=== PATIENT | male | born 1975 | race Caucasian/White ===

== ENCOUNTER → 2018-03-02 | Outpatient (CLI) | payer MEDICARE ==
[2018-03-02 16:40] VITALS: BP 131/65; PULSE 86; RESP 16; TEMP 98.2; BMI 37.3
--- NOTE | 2018-03-02 17:27 | P.PN ---
Subjective Progress Note Date: 03/02/18 DATE OF SERVICE: 03/02/2018 CHIEF COMPLAINT: Follow-up, sleeve gastrectomy. HISTORY OF PRESENT ILLNESS: Chuck Rodriges is a very successful 40-year-old gentleman who initially presented to the program over a year ago weighing 440 pounds. Today he comes in weighing 260 pounds. He has lost 180 pounds. His percent excess weight loss is 70%. His body mass index has been reduced from 57.9 to 35.4. Total BMI point reduction is 22.5. No reports of active gastroesophageal reflux disease. He has moderate improvement of his joint pain throughout. He has adopted an active lifestyle, including walking and jogging. His sleep apnea has completely resolved. He has moderate decrease in his medications for his bipolar disorder, including decrease in his Trileptal. He does report chronic panniculitis which had been present even prior to his surgery. He is taking nystatin powder. His personal goal is to get down to 220 pounds. He is less than 40 pounds shy of his goal. He now presents for further evaluation and management. Last seen 02/13/2016. He comes in today at 276 pounds. He had broke his elbow in the past 2 years. He was training for 10 K runs. The lowest weight was less than 261 pounds. Takes prilosec regularly for gastroesophageal reflux disease. No dysphagia. Has occassional fatigue. He goes to the gym often. His joint pain has improved with his weight loss. He is running and weight training. Protein intake of over 90 g daily from protein shakes. He reports panniculitis chronic for over 3+ years despite treatment of prescribed treatment. PAST MEDICAL HISTORY: 1. Depression. 2. Hypertension. 3. Osteoarthritis. 4. Morbid obesity. 5. Bipolar disorder. 6. Chronic panniculitis. PAST SURGICAL HISTORY: 1. Open reduction internal fixation of the ankle. 2. Upper endoscopy. 3. Status post sleeve gastrectomy. MEDICATIONS: 1. Vitamin D. 2. Klonopin. 3. Ambien. 4. Co-Q10. 5. Trileptal. 6. Nystatin powder. 7. Multivitamin. 8. Melatonin. 9. Iron. 10. Lexapro. 11. Adderall. ALLERGIES: Denies. SOCIAL HISTORY: He quit tobacco use. No active illicit drug use. FAMILY HISTORY: Pertinent for morbid obesity. He reports colon cancer in his family. No reports of DVTs or pulmonary embolism. REVIEW OF SYSTEMS: CONSTITUTIONAL: Highest weight of 440 pounds. Initial body mass index was as high as 59.7. Mcclave body weight is 183 pounds. GASTROINTESTINAL: Resolving gastroesophageal reflux disease. RESPIRATORY: Resolved obstructive sleep apnea. PSYCH: Moderate reduction of his mood-stabilizing medications. CARDIOVASCULAR: Moderate improvement of his blood pressure. MUSCULOSKELETAL: Moderate improvement of joint pain, particularly of the left knee and ankle. DIETARY HISTORY: He is maintaining over 75 gm of protein daily. SKIN: Reports worsening symptoms of panniculitis despite medical treatment nystatin powder. HEENT: No troubles with vision or hearing. ENDOCRINE: No reports of diabetes or thyroid disorder. HEMATOLOGIC: No reports of recent DVTs or pulmonary emboli. PHYSICAL EXAM: VITAL SIGNS: 98.4, 82, 18, 125/77, 6 feet, 260 pounds. Body mass index of 35.4. Mcclave body weight is 183 pounds. ABDOMEN: Soft, nontender. No palpable incisional hernias. Skin extends over the pubis by approximately 3 to 4 cm. Moderate panniculitis of the pannus. GENERAL: Well-developed pleasant male in no acute distress. MUSCULOSKELETAL: No clubbing or cyanosis. HEENT: No scleral icterus. Extraocular movements are intact. Moist buccal mucosa. NECK: Supple without lymphadenopathy. CHEST: Unlabored respirations with equal bilateral excursions. CARDIOVASCULAR: Regular rate and rhythm. NEURO: No focal or lateralizing signs. PSYCH: Appropriate affect. Alert and oriented to person, place and time. LABS: Pending. ASSESSMENT: 1. Morbid obesity due to excess caloric intake. 2. Body mass index reduced from 59.7 to 35.4. 3. Status post sleeve gastrectomy. 4. Status post massive weight loss, 180 pounds. 5. History of bipolar disorder, improved. 6. Osteoarthritis of the bilateral knees and ankles, moderately improved. 7. History of hypertensive heart disease without cardiomyopathy, improved. 8. Iron deficiency due to iatrogenic procedure. 9. History of obstructive sleep apnea, improved. 10. Chronic pannniculitis of the abdomen despite medical therapy. PLAN: 1. Recommend bariatric metabolic panel. 2. Panniculectomy evaluation for chronic panniculitis. In the interim, recommend Nystatin powder. 3. He has lost much weight from 290 pounds since September 2017. 4. He is eager to increase muscle. 5. Recommend support groups advised. 6. Follow up in 1 month. Objective - Vital Signs Vital signs: Vital Signs Temp 98.2 F 03/02/18 16:36 Pulse 86 03/02/18 16:36 Resp 16 03/02/18 16:36 BP 131/65 03/02/18 16:36 Pulse Ox Intake & Output 03/01/18 03/02/18 03/02/18 18:59 06:59 18:59 Weight 124.993 kg
== END | disposition home or self-care (01) ==
LOC: BARWHC3 15:51
PROVIDERS: ATTEND Surgery Plastic and Reconstructive Surgery
DX: Z48.815 Encounter for surgical aftercare following surgery on the digestive system (principal); E66.01 Morbid (severe) obesity due to excess calories; M17.0 Bilateral primary osteoarthritis of knee; M19.072 Primary osteoarthritis, left ankle and foot; M19.071 Primary osteoarthritis, right ankle and foot; M79.3 Panniculitis, unspecified; Z87.09 Personal history of other diseases of the respiratory system; E61.1 Iron deficiency; Z86.79 Personal history of other diseases of the circulatory system; Z86.59 Personal history of other mental and behavioral disorders; Z98.84 Bariatric surgery status; Z68.35 Body mass index [BMI] 35.0-35.9, adult; Z79.899 Other long term (current) drug therapy
CPT/HCPCS: 99211

== ENCOUNTER → 2018-10-07 | Outpatient (CLI) | payer MEDICARE ==
[2018-10-07 16:31] LABS: HCT 40.6 % (39.0-53.0); HGB 13.1 gm/dL (13.0-17.5); MCH 28.6 pg (25.0-35.0); MCHC 32.2 g/dL (31.0-37.0); MCV 88.8 fL (80.0-100.0); Mean Platelet Volume 6.8; Platelet Count 256 k/uL (150-450); RBC 4.57 m/uL (4.30-5.90); WBC 6.2 k/uL (3.8-10.6)
[2018-10-07 16:37] LABS: Partial Thromboplastin Time 24.9 sec (22.0-30.0); Prothrombin Time 10.3 sec (9.0-12.0)
[2018-10-08 02:25] LABS: Parathyroid Hormone Intact 40.7 pg/mL (14.0-72.0)
[2018-10-08 02:33] LABS: Albumin 4.6 g/dL (3.80-4.90); Albumin/Globulin Ratio 2.3 (1.20-2.10); Anion Gap 9.9 mmol/L (4.00-12.00); Calcium 9.6 mg/dL (8.7-10.3); Carbon Dioxide 26.1 mmol/L (21.6-31.8); LDL Cholesterol,Calculated 145.6 mg/dL (0.0-131.0); Magnesium 1.8 mg/dL (1.5-2.4); Phosphorus 3.8 mg/dL (2.4-5.1); Total Bilirubin 0.4 mg/dL (0.3-1.2); Total Protein 6.6 g/dL (6.2-8.2); VLDL Calculation 15.4 mg/dL (5.00-40.00)
[2018-10-08 02:36] LABS: Iron Saturation 25.09 (15.00-50.00)
[2018-10-08 02:46] LABS: Vitamin D 25 Hydroxy 59.1 ng/mL (30.0-100.0)
[2018-10-08 02:52] LABS: Folate, Serum >24.0 ng/mL
[2018-10-08 03:47] LABS: Hemoglobin A1C 5.1 % (4.0-6.0)
[2018-10-10 13:11] LABS: Zinc, Serum 76 ug/dL (60-130)
[2018-10-11 05:34] LABS: Vitamin A 63 ug/dL (38-106)
[2018-10-11 05:45] LABS: Vitamin B1 51 ug/L (38-122)
== END | disposition home or self-care (01) ==
LOC: LABWHC1 15:38
PROVIDERS: ATTEND Surgery Plastic and Reconstructive Surgery
DX: E66.01 Morbid (severe) obesity due to excess calories (principal); E21.1 Secondary hyperparathyroidism, not elsewhere classified; E89.1 Postprocedural hypoinsulinemia; D50.9 Iron deficiency anemia, unspecified; K90.9 Intestinal malabsorption, unspecified; E55.9 Vitamin D deficiency, unspecified; K76.9 Liver disease, unspecified; N19 Unspecified kidney failure; K50.90 Crohn's disease, unspecified, without complications
CPT/HCPCS: 36415; 80053; 80061; 82306; 82525; 82607; 82728; 82746; 83036; 83540; 83550; 83735; 83970; 84100; 84134; 84255; 84425; 84443; 84590; 84630; 85027; 85610; 85730

== ENCOUNTER → 2019-12-27 | Outpatient (CLI) | payer MEDICARE, OTHER ==
[2019-12-27 15:51] VITALS: BP 111/72; PULSE 96; RESP 16; TEMP 97.8; BMI 36.7
--- NOTE | 2019-12-27 16:24 | P.PN ---
Subjective Progress Note Date: 12/27/19 He comes in for panniculectomy. He has Nystatin powder. He is working out. Policy Change Clerk not seen. ABDOMEN: 10 pounds of pannus PLAN: 1. Evaluation for panniculitis. 2. Recommend pictures. 3. Nystatin powder 4. Policy Change Clerk referral. Patient comes with moderate questions all of which were addressed. Overall recommend continue protein intake protein of 100 g daily. He is wearing a waste market development trainer which he may continue. Recommend abdominal exercises preoperatively for best surgical outcome. Separately, recommend bariatric labs. Will need correction of nutritional deficiencies prior to surgical intervention. Overall weight loss has been stable in the past 3+ years. Recovery at least 2 months post-panniculectomy was also reviewed pending the amount of skin removal. Objective - Vital Signs Vital signs: Vital Signs Temp 97.8 F 12/27/19 15:46 Pulse 96 12/27/19 15:46 Resp 16 12/27/19 15:46 BP 111/72 12/27/19 15:46 Pulse Ox 98 12/27/19 15:46 Intake & Output 12/26/19 12/27/19 12/27/19 18:59 06:59 18:59 Weight 122.878 kg
[2019-12-27 17:52] LABS: HCT 43.9 % (39.0-53.0); HGB 14.5 gm/dL (13.0-17.5); MCH 29.6 pg (25.0-35.0); MCHC 32.9 g/dL (31.0-37.0); MCV 89.8 fL (80.0-100.0); Platelet Count 235 k/uL (150-450); RBC 4.89 m/uL (4.30-5.90); RDW 12.4 % (11.5-15.5); WBC 6.8 k/uL (3.8-10.6)
[2019-12-27 18:02] LABS: INR 0.9 (<1.2); Partial Thromboplastin Time 23.4 sec (22.0-30.0); Prothrombin Time 9.9 sec (9.0-12.0)
[2019-12-28 02:21] LABS: Hemoglobin A1C 5.1 % (4.0-6.0)
[2019-12-28 02:35] LABS: % Iron Saturation 31.91 (15.00-50.00); African American GFR (CKD) 85.3 (60.0-200.0); Albumin 4.6 g/dL (3.80-4.90); Anion Gap 12.3 mmol/L (4.00-12.00); BUN/Creat Ratio 23.33 Ratio (12.00-20.00); Calcium 9.4 mg/dL (8.7-10.3); Carbon Dioxide 24.7 mmol/L (21.6-31.8); Chol/HDL Ratio 3.56; Globulin 2.3 g/dL (1.6-3.3); LDL Cholesterol,Calculated 118.2 mg/dL (0.0-131.0); Non-African American GFR(CKD) 73.6 (60.0-200.0); Phosphorus 4.1 mg/dL (2.4-5.1); Potassium 4.2 mmol/L (3.5-5.5); Total Bilirubin 0.5 mg/dL (0.3-1.2); Total Protein 6.9 g/dL (6.2-8.2); VLDL Calculation 19.8 mg/dL (5.00-40.00)
[2019-12-28 02:43] LABS: Ferritin 66.4 ng/mL (22.0-322.0)
[2019-12-28 03:28] LABS: Folate, Serum 16.7 ng/mL
[2019-12-28 12:02] LABS: Zinc, Serum 75 ug/dL (60-130)
[2019-12-29 07:44] LABS: Vitamin A 54 ug/dL (38-106)
[2019-12-29 10:42] LABS: Vit B1(Thiamine) 88 ug/L (38-122)
== END | disposition home or self-care (01) ==
LOC: BARWHC3 15:13
PROVIDERS: ATTEND Surgery Plastic and Reconstructive Surgery
DX: M79.3 Panniculitis, unspecified (principal); E66.01 Morbid (severe) obesity due to excess calories; E21.1 Secondary hyperparathyroidism, not elsewhere classified; E89.1 Postprocedural hypoinsulinemia; D50.9 Iron deficiency anemia, unspecified; K90.9 Intestinal malabsorption, unspecified; E55.9 Vitamin D deficiency, unspecified; K74.1 Hepatic sclerosis; N19 Unspecified kidney failure; K50.90 Crohn's disease, unspecified, without complications; Z68.36 Body mass index [BMI] 36.0-36.9, adult
CPT/HCPCS: 84255; 84134; 84425; 80061; 80053; 82607; 82728; 82525; 82746; 83540; 83550; 83735; 84100; 84443; 84590; 84630; 85027; 85610; 85730; 82306; 83970; 83036; G0463; 99211

== ENCOUNTER → 2021-04-21 | Outpatient (CLI) | payer MEDICARE, OTHER ==
[2021-04-21 09:31] VITALS: BP 111/75; PULSE 81; RESP 16; TEMP 97.4
--- NOTE | 2021-04-21 10:00 | P.PAINCN ---
History of Present Illness - Reason for Consult Consult date: 04/21/21 - History of Present Illness This is an initial consultation visit for this 45 years old male with a chronic history of severe neck pain with radiation to the left upper extremity, started more than 4 months ago after he hit his head against the Garage door at home, pain is constant, radiated to the left upper extremity, also patient complaining of severe left shoulder pain. Bending him from doing any activity in his left arm, he feels some weakness in his left arm, he denies any fever he denies any change in the bowel movement or urination, he is done physical therapy, and he is doing home exercises, he is already started on NSAID ( Mobic), Tylenol and Ultram and baclofen, and he continued to have severe pain Past Medical History Past Medical History: GERD/Reflux, Hypertension, Musculoskeletal Disorder, Skin Disorder, Sleep Apnea/CPAP/BIPAP Additional Past Medical History / Comment(s): currently HTN resolved, migraines, uses CPAP, TROUBLE FALLING ASLEEP, past hx. Broken Left elbow, neck & shoulder problems History of Any Multi-Drug Resistant Organisms: None Reported Past Surgical History: Bariatric Surgery, Orthopedic Surgery Additional Past Surgical History / Comment(s): Rt ankle, screws and plates, Gastric Sleeve on 02/04/2015 Past Anesthesia/Blood Transfusion Reactions: Previous Problems w/ Anesthesia, Motion Sickness Additional Past Anesthesia/Blood Transfusion Reaction / Comm: has had headache before after waking up Past Psychological History: ADD/ADHD, Anxiety, Depression Smoking Status: Former smoker Past Alcohol Use History: None Reported Additional Past Alcohol Use History / Comment(s): quit smoking 5 yrs. ago, smoked on & off 15 yrs. 1ppd Past Drug Use History: None Reported - Past Family History Mother Family Medical History: Diabetes Mellitus, Hypertension Additional Family Medical History / Comment(s): high cholesterol Medications and Allergies Home Medications Medication Instructions Recorded Confirmed Type Omeprazole [PriLOSEC] 20 mg PO DAILY 03/03/18 04/15/21 History hydrOXYzine HCL [Atarax] 25 mg PO DAILY PRN 03/03/18 04/15/21 History traZODone HCL [Desyrel] 300 mg PO HS 03/03/18 04/15/21 History Lisdexamfetamine Dimesylate 70 mg PO QAM 12/27/19 04/15/21 History [Vyvanse] Nortriptyline HCl [Pamelor] 75 mg PO HS 12/27/19 04/15/21 History Propranolol [Inderal] 20 mg PO DAILY PRN 12/27/19 04/15/21 History clonazePAM [KlonoPIN] 0.5 mg PO TID PRN 12/27/19 04/15/21 History Acetaminophen Tab [Tylenol] 650 mg PO Q4-6H PRN 04/15/21 04/15/21 History Baclofen [Lioresal] 10 mg PO TID 04/15/21 04/15/21 History Dextroamphetamine/Amphetamine 10 mg PO 1500 04/15/21 04/15/21 History [Adderall] Glucos Sul 2Kcl/MSM/Chond/C/Mn 1 each PO DAILY 04/15/21 04/15/21 History [Glucosamine Chondroitin Cap] Meloxicam [Mobic] 7.5 mg PO DAILY 04/15/21 04/15/21 History Burtrum-3 Fatty Acids/Fish Oil [Fish 2 each PO DAILY 04/15/21 04/15/21 History Oil 1,000 mg Softgel] Turmeric/Curcumin 1 tab PO DAILY 04/15/21 04/15/21 History traMADol HCL [Ultram] 50 mg PO Q4-6H PRN 04/15/21 04/15/21 History Allergies Allergy/AdvReac Type Severity Reaction Status Date / Time No Known Allergies Allergy Verified 04/15/21 14:21 Physical Exam Vitals: Vital Signs Temp Pulse Resp BP Pulse Ox 04/21/21 09:26 97.4 F L 81 16 111/75 95 Physical Examinations : -Constitutiona : Cooperative , not in acute distress . -HEENT : nech : supple , no Lymphadenopathy , normal thyroid size . : eyes : no ptosis , no icterus, no photophobia . - neurologic : Cranial nerve II to XII intact , no focal neurological deffecit . -psychatric : alert , oriented X 3 , appropriate affect , intact judgment and insight . -Lymphatic : no Lymphadenopathy . - musculoskeltal : Cervical Spine motor stregnth in the deltoid and biceps, normal right side , normal Left side motor stregnth biceps and the wrist extensors normal right side ,normal left side . motor stregnth in the triceps muscle . normal Right side , normal Left side deep tendon reflexes normal at the biceps , normal at Brachioradialis , normal at triceps. cervical facet loading test: Positive Bilaterally Spurling test= positive left. Neck distraction test= positive left. Landy sign= positive left . Multiple trigger point identified in the left side cervical paraspinal muscles, and anterior shoulder muscles Abduction and adduction and lateral rotation of the left shoulder associated with severe pain Lumber spine moter stegnth lower extremities ,thigh and legs 5/5 Right side , 5/5 Left side Results Comments: MRI of the cervical spine C5 6 left central disc protrusion and moderate spinal canal stenosis C6 7 annular bulging disc Assessment and Plan Plan: Assessment and plan=1-cervical degenerative disc disease. 2-cervical spinal stenosis. 3-left shoulder arthralgia. 4-myofascial pain syndrome left side cervical paraspinal muscles and left shoulder area. Patient could benefit from cervical epidural steroid injection under fluoroscopy guidance at C6 7 or C7-T1 left paramedian approach and at the same time ,we can do trigger point injections left-sided cervical paraspinal muscles and left shoulder area( anterior) Time with Patient: Greater than 30 PQRS Measure Charge Sheet Measure #130: Documentation of Current Meds in Medical Chart: Patient's medications documented in chart Measure #226: Tobacco Use: Screen & Cessation Intervention: Pt not a tobacco user Measure #111: Pneumonia Vaccination: Pneumococcal vaccine NOT administered or previously given Measure #47: Advance Care Plan: Advance care planning discussed & documented, pt chose/unable to give Measure #412: Opioid Treatment Agreement: No documentation of signed opioid treatment agreement Measure #408: Opioid Therapy Follow-up Evaluation: Patient had NO f/u eval minimum every 3 months during opioid therapy Measure #317: Preventitive Care & Scrn High Bld Press & F/U: Normal blood pressure, f/u not required Measure #128: Body Mass Index (BMI) Screening & Follow-up: BMI documented ABOVE normal parameters - f/u documented Measure #131: Pain Assessment & Follow-up: Pain positive & plan documented, Follow-up scheduled Measure #431: Unhealthy Alcohol Use Preventative Care & Scrn: Patient not identified as an unhealthy alcohol user PQRS Narrative: Smoking Status Former smoker Blood Pressure 111/75 Pain Intensity [Left Shoulder] 5 Scale Used Numeric (1 - 10) Hx Alcohol Use (MH) No Home Medications: Ambulatory Orders Omeprazole [PriLOSEC] 20 mg PO DAILY 05/10/18 hydrOXYzine HCL [Atarax] 25 mg PO DAILY PRN 03/03/18 traZODone HCL [Desyrel] 300 mg PO HS 03/03/18 Lisdexamfetamine Dimesylate [Vyvanse] 70 mg PO QAM 12/27/19 Nortriptyline HCl [Pamelor] 75 mg PO HS 12/27/19 Propranolol [Inderal] 20 mg PO DAILY PRN 12/27/19 clonazePAM [KlonoPIN] 0.5 mg PO TID PRN 12/27/19 Acetaminophen Tab [Tylenol] 650 mg PO Q4-6H PRN 04/15/21 Baclofen [Lioresal] 10 mg PO TID 04/15/21 Dextroamphetamine/Amphetamine [Adderall] 10 mg PO 1500 04/15/21 Glucos Sul 2Kcl/MSM/Chond/C/Mn [Glucosamine Chondroitin Cap] 1 each PO DAILY 04/15/21 Meloxicam [Mobic] 7.5 mg PO DAILY 04/15/21 Burtrum-3 Fatty Acids/Fish Oil [Fish Oil 1,000 mg Softgel] 2 each PO DAILY 04/15/21 Turmeric/Curcumin 1 tab PO DAILY 04/15/21 traMADol HCL [Ultram] 50 mg PO Q4-6H PRN 04/15/21
== END ==
LOC: PNWHC3 09:16
PROVIDERS: ATTEND Specialist
DX: M50.30 Other cervical disc degeneration, unspecified cervical region (principal); M48.02 Spinal stenosis, cervical region; M25.512 Pain in left shoulder; M79.18 Myalgia, other site; K21.9 Gastro-esophageal reflux disease without esophagitis; I10 Essential (primary) hypertension; F90.9 Attention-deficit hyperactivity disorder, unspecified type; F41.9 Anxiety disorder, unspecified; F32.9 Major depressive disorder, single episode, unspecified; Z87.891 Personal history of nicotine dependence
CPT/HCPCS: 99211

== ENCOUNTER 2021-05-06 06:57 | Day surgery (SDC) | payer MEDICARE, OTHER ==
[~2021-05-06 06:57] MED LIST: LACTATED RINGERS 1,000 ML IV SCH
[2021-05-06 07:47] VITALS: RESP 16; TEMP 97.2
[2021-05-06] MEDS ORDERED: LIDOCAINE 1% (10MG/ML) FOR IV START INTRADERMA ONE (08:09)
[2021-05-06] MEDS ORDERED: ROPIVACAINE 5MG/ML 20ML VIAL ONE (08:16)
[2021-05-06] MEDS ORDERED: IOPAMIDOL M200 10 ML VIAL ONE (08:16)
[2021-05-06] MEDS ORDERED: MIDAZOLAM 2 MG/2 ML VIAL ONE (08:16)
[2021-05-06] MEDS ORDERED: DEXAMETHASONE SOD PHOSPHATE 10 MG/ML 1 ML VIAL ONE (08:16)
[2021-05-06] MEDS ORDERED: fentaNYL (PF) 50 MCG/ML 2 ML AMP ONE (08:16)
[2021-05-06] MEDS ORDERED: TRIAMCINOLONE ACETONIDE 40 MG/ML 1 ML VIAL ONE (08:16)
--- NOTE | 2021-05-06 08:32 | P.PCN ---
Date of Procedure: 05/06/21 Surgeon: Dexter Johnson Pathology: none sent Condition: stable Disposition: PACU Description of Procedure: 1. Cervical epidural steroid injection under fluoroscopic guidance, C7-T1 left paramedian approach. 2. Cervical epidurogram. :3-trigger point injection in the left shoulder muscles including supraspinatus, infraspinatus and trapezius muscles and anteriorly in the left upper deltoid area. PREOPERATIVE DIAGNOSIS: Cervical radiculopathy, cervical spondylosis without myelopathy POSTOPERATIVE DIAGNOSIS: : Same as above ANESTHESIA: Local anesthesia with 1% lidocaine and IV moderate conscious sedation with 2 mg Versed and 100 mcg Fentanyl . EBL 0 PROCEDURE INDICATION: The patient with neck pain and radiculopathy unresponsive to conservative treatment consents for procedure. PROCEDURE DESCRIPTION / TECHNIQUE: The patient was seen and identified in the preoperative area. Risks, benefits, complications, including but not limited to infections ,bleeding , allergic reactions to the medications ,and not complete pain relief, and alternatives were discussed with the patient, the patient agreed to proceed with the procedure and signed the consent. Patient was taken to the OR and time out was completed. The patient was placed in the prone position on the procedure table. A pillow was placed under the patients chest to increase the flexion of the cervical spine . The cervical area was prepped and draped in the usual sterile fashion. Vital signs were closely monitored during the procedure. Conscious sedation was used during the procedure to decrease patients anxiety. Using anterior-posterior fluoroscopy, the C7-T1 interlaminar space was identified and the skin over this site was marked and then infiltrated with 1% lidocaine subcutaneously. Subsequently, a 20-gauge 3-1/2-inch Tuohy epidural needle was inserted and advanced toward the epidural space by means of loss of resistance to air technique and guided by AP and lateral fluoroscopy. The needle tip contacted the lamina of T1 vertebra first, then it was walked off bone and into the epidural space using the loss of to air and fluoroscopic guidance to identify the epidural space. The correct needle position in the epidural space was verified with the injection of 1 mL of the water soluble contrast dye Isovue and observing an excellent epidurogram with the epidural spread of the dye, after negative aspiration for blood and CSF and in the absence of paresthesias. Again after negative aspiration, 20 mg of Decadron was injected and a washout of epidurogram was seen. Needle was withdrawn intact, sk in was cleansed, and bandages were applied. A copy of the needle placement picture was saved to the fluoroscopy machine. I then turned my attention to doing the trigger point injections on the above- mentioned muscles on the left shoulder area using 25-gauge 1 inch needle and I then injected 6 mL of Marcaine 0.5% mixed with 20 mg of Kenalog. 1 mL of the solution was injected in each trigger point and a total of 6 injections were done.
--- NOTE | 2021-05-06 08:40 | FL ---
Fluoroscopy HISTORY: Pain 5 seconds fluoroscopy time supplied to the referring clinician. 1 intraoperative C-arm images docume nt the procedure. See dictated report from anesthesia.
[2021-05-06 08:54] VITALS: BP 118/73; PULSE 82
[2021-05-06] MEDS ORDERED: IV FLUID CONTINUATION 1,000 ML IV ONE (08:55)
== END 2021-05-06 09:07 ==
LOC: ORPAIN 06:57
PROVIDERS: ATTEND Anesthesiology
DX: M47.22 Other spondylosis with radiculopathy, cervical region (principal); F32.9 Major depressive disorder, single episode, unspecified; Z79.891 Long term (current) use of opiate analgesic; Z79.899 Other long term (current) drug therapy
CPT/HCPCS: 20553; 62321; J2250; J1100; J3301; J3010; Q9966; J2795; 99152

== ENCOUNTER 2021-06-03 07:00 | Day surgery (SDC) | payer MEDICARE, OTHER ==
[2021-06-02 10:51] VITALS: BMI 32.7
[2021-06-03 07:24] VITALS: RESP 16; TEMP 97.4
[2021-06-03] MEDS ORDERED: LIDOCAINE 1% (10MG/ML) FOR IV START INTRADERMA ONE (07:33)
[2021-06-03] MEDS ORDERED: LACTATED RINGERS 1,000 ML IV ONE (07:33)
[2021-06-03] MEDS ORDERED: DEXAMETHASONE SOD PHOSPHATE 10 MG/ML 1 ML VIAL ONE (07:38)
[2021-06-03] MEDS ORDERED: ROPIVACAINE 5MG/ML 20ML VIAL ONE (07:38)
[2021-06-03] MEDS ORDERED: MIDAZOLAM 2 MG/2 ML VIAL ONE (07:38)
[2021-06-03] MEDS ORDERED: fentaNYL (PF) 50 MCG/ML 2 ML AMP ONE (07:38)
[2021-06-03] MEDS ORDERED: IOPAMIDOL M200 10 ML VIAL ONE (07:38)
[2021-06-03] MEDS ORDERED: IV FLUID CONTINUATION 650 ML IV ONE (07:56)
--- NOTE | 2021-06-03 07:59 | P.PCN ---
Date of Procedure: 06/03/21 Procedure(s) Performed: . PROCEDURE 1. Cervical epidural steroid injection under fluoroscopic guidance, C7-T1 (fluoroscopy images available in the radiology department ) 2. Cervical epidurogram. 3. Trigger point injection left side cervical paraspinal muscles, supraspinatus, and infraspinatus muscules, (toatal 5 trigger point injected ) PREOPERATIVE DIAGNOSIS: 1- Cervical Degenerative Disc Diseases 2-cervical spinal stenosis. 3-myofascial pain syndrome and cervical area POSTOPERATIVE DIAGNOSIS: : same as pre op diagnosis ANESTHESIA: Local anesthesia with lidocaine 1 % , and moderate sedation, with Versed 2 mg and Fentanyl 50 mcg. EBL 0 PROCEDURE INDICATION: The patient with neck pain and radiculitis unresponsive to conservative treatment consents for procedure. PROCEDURE DESCRIPTION / TECHNIQUE: The patient was seen and identified in the preoperative area. Risks, benefits, complications, including but not limited to infections ,bleeding , allergic reactions to the medications ,and not complete pain releife, and alternatives were discussed with the patient, the patient agreed to proceed with the procedure and signed the consent. Patient was taken to the OR and time out was completed. The patient was placed in the prone position on the procedure table. A pillow w as placed under the patients chest to increase the cervical interlaminar space. The cervical area was prepped and draped in the usual sterile fashion. Vital signs were closely monitored during the procedure. Conscious sedation was used during the procedure to decrease patients anxiety. Using anterior-posterior fluoroscopy, the C7-T1 interlaminar space ( Left paramedial ) was identified and the skin over this site was marked and then infiltrated with 1% lidocaine subcutaneously. Subsequently, a 20-gauge 3-1/2-inch Tuohy epidural needle was inserted and advanced toward the epidural space by means of the ``hanging-drop technique and guided by AP and lateral fluoroscopy. The correct needle position in the epidural space was verified with the injection of 2 mL of the water soluble contrast dye Isovue-200 and observing an excellent epidurogram with the epidural spread of the dye, after negative aspiration for blood and CSF and in the absence of paresthesias. then, mixture containing 20 mg Dexamethasone and 2 ml of preservative-free normal saline injected and a washout of epidurogram was seen. Needle was withdrawn intact. And after that and a trigger point injection done and a sterile technique using 25-gauge neele total of 5 trigger point injected in the left side cervical paraspinal muscles supraspinatus muscles and infraspinatus muscles, each of the trigger point injected with ropivacaine 0.5% 2 mL using 25-gauge needle injection done after negative aspiration and there was no paresthesia during the injection, tolerated the procedure well without any complications Complications= none. Disposition= patient was placed in supine position and transferred to the recovery room area in stable condition and there was no evidence of upper or lower extremity motor or sensory deficit after the procedure patient was discharged from recovery room after discharge criteria met and home discharge instructions was given by the staff and patient will follow with the pain clinic in 2-4 weeks
[2021-06-03 08:19] VITALS: BP 117/78; PULSE 66
--- NOTE | 2021-06-03 08:43 | FL ---
Fluoroscopy INDICATION: Pain FINDINGS: Fluoroscopy time: 3 seconds. Images obtained: 1. IMPRESSIONS: 1. Documentation of fluoroscopy.
== END 2021-06-03 08:27 | disposition home or self-care (01) ==
LOC: ORPAIN 07:00
PROVIDERS: ATTEND Specialist
DX: M48.02 Spinal stenosis, cervical region (principal); F41.9 Anxiety disorder, unspecified
CPT/HCPCS: 20553; 62321; J2250; J1100; J3010; Q9966; J2795

== ENCOUNTER → 2021-07-14 | Outpatient (CLI) | payer MEDICARE, OTHER ==
--- NOTE | 2021-07-14 13:49 | P.PN ---
Subjective Progress Note Date: 07/14/21 This is a 45-year-old gentleman with history of neck pain with radiation to the left arm down to the left hand with occasional tingling in the left arm. The patient feels some weakness also in the left arm. He had 2 cervical epidural steroid injection which gave him significant relief of pain however the benefits did not last for more than a few weeks. The cervical spine MRI showed moderate to severe neuroforaminal stenosis at the C5 6 level on the left side along with degenerative changes. Patient denies new-onset weakness, bowel/bladder incontinence, or any other signs or symptoms of cauda equina syndrome. There are no signs of acute intoxication, and no indications of medication diversion or overuse. In addition to above, 13-point review of systems is also negative for chest pain, shortness of breath, changes in vision, changes in hearing, new onset weak ness, abdominal pain, diarrhea, extreme fatigue, malaise, fever, skin changes, homicidal or suicidal ideation, or bowel or bladder incontinence. Vital Signs: Reviewed in EMR Gen: AAOx3, NAD HEENT: PERRLA,hearing grossly normal Pulm: resp unlabored Neck: supple, trachea midline Neuro exam of the upper extremities: No ptosis strength bilaterally Normal range of motion of the cervical spine with mild pain with left rotation Tenderness in the paravertebral musculature: Positive tenderness in the cervical paravertebral musculature on the left side and also in the left trapezius muscle Neuro: CN II-XII grossly intact, Imaging: Reviewed in EMR/chart Assessment: Left cervical radiculopathy due to neuroforaminal stenosis Cervical spondylosis without myelopathy Cervical DDD Myofascial pain Plan: 1. Explanation: When patients on opioids, opioid and psychological risk scores were reviewed. Diagnoses, prognoses, and multiple treatment options including but not limited to physical therapy, interventional therapies, adjuvant medical therapies, narcotic medication therapies, and surgery were discussed with the patient and all questions were answered to the patient's satisfaction. 2. Opioid agreement:When patients are prescribed opoids through our clinic, opioid agreement is signed with the patient and the patient is warned not to use opioids while driving or before driving and not to combine opioids with benzodiazepines or alcohol. 3. Counseling: When patient is smoking or obese, the patient was counseled extensively on SMOKING CESSATION, BODY MASS INDEX, EXERCISE. Specifically, the patient was instructed regarding the importance of smoking cessation, obesity, and exercise in the context of both chronic pain and overall health. 4. Procedures: We will schedule the patient to have the third and last cervical epidural steroid injection with the trigger point injection in the left cervical paravertebral musculature and left trapezius muscle. If his neck pain worsens then he might benefit from a diagnostic cervical medial branch block in the future 5. Consultations: None 6. Investigations: None 7. Medications: None prescribed today 8. Disposition: Proceed with the above-mentioned procedure as soon as possible 9. Maps were reviewed and were appropriate. Objective - Vital Signs Vital signs: Intake & Output 07/13/21 07/14/21 07/14/21 18:59 06:59 18:59 Weight 115.666 kg
[2021-07-14 14:16] VITALS: BP 130/84; PULSE 90; RESP 16; TEMP 97.7
== END ==
LOC: PNWHC3 13:10
PROVIDERS: ATTEND Anesthesiology
DX: M50.10 Cervical disc disorder with radiculopathy, unspecified cervical region (principal); M48.02 Spinal stenosis, cervical region; M79.18 Myalgia, other site; M47.22 Other spondylosis with radiculopathy, cervical region; Z87.891 Personal history of nicotine dependence
CPT/HCPCS: 99211

== ENCOUNTER 2021-07-31 06:15 | Day surgery (SDC) | payer MEDICARE, OTHER ==
[2021-07-29 17:37] VITALS: BMI 32.1
[2021-07-31 06:49] VITALS: TEMP 97.3
[2021-07-31] MEDS ORDERED: MIDAZOLAM 2 MG/2 ML VIAL ONE (07:12)
[2021-07-31] MEDS ORDERED: ROPIVACAINE 5MG/ML 20ML VIAL ONE (07:12)
[2021-07-31] MEDS ORDERED: fentaNYL (PF) 50 MCG/ML 2 ML AMP ONE (07:12)
[2021-07-31] MEDS ORDERED: DEXAMETHASONE SOD PHOSPHATE 10 MG/ML 1 ML VIAL ONE (07:12)
[2021-07-31] MEDS ORDERED: IOPAMIDOL M200 10 ML VIAL ONE (07:12)
[2021-07-31] MEDS ORDERED: IV FLUID CONTINUATION 650 ML IV ONE (07:36)
--- NOTE | 2021-07-31 07:36 | P.PCN ---
Date of Procedure: 07/31/21 Preoperative Diagnosis: Left cervical radiculopathy Myofascial pain Postoperative Diagnosis: Same as above Surgeon: Dexter Johnson Pathology: none sent Condition: stable Disposition: PACU Description of Procedure: PROCEDURE 1. Cervical epidural steroid injection under fluoroscopic guidance, C7-T1 ---- paramedian approach. 2. Cervical epidurogram. 3-trigger point injection: ANESTHESIA: Local anesthesia with 1% lidocaine and IV moderate conscious sedation with Versed and Fentanyl . PROCEDURE INDICATION: The patient with neck pain and radiculopathy unresponsive to conservative treatment consents for procedure. PROCEDURE DESCRIPTION / TECHNIQUE: The patient was seen and identified in the preoperative area. Risks, benefits, complications, including but not limited to infections ,bleeding , allergic reactions to the medications ,and not complete pain relief, and alternatives were discussed with the patient, the patient agreed to proceed with the procedure and signed the consent. Patient was taken to the OR and time out was completed. The patient was placed in the prone position on the procedure table. A pillow was placed under the patients chest to increase the flexion of the cervical spine . The cervical area was prepped and draped in the usual sterile fashion. Vital signs were closely monitored during the procedure. Conscious sedation was used during the procedure to decrease patients anxiety. Using anterior-posterior fluoroscopy, the C7-T1 interlaminar space was identified and the skin over this site was marked and then infiltrated with 1% lidocaine subcutaneously. Subsequently, a 20-gauge 3-1/2-inch Tuohy epidural needle was inserted and advanced toward the epidural space by means of loss of resistance to air technique and guided by AP and lateral fluoroscopy. The needle tip contacted the lamina of T1 vertebra first, then it was walked off bone and into the epidural space using the loss of to air and fluoroscopic guidance to identify the epidural space. The correct needle position in the epidural space was verified with the injection of 1 mL of the water soluble contrast dye Isovue and observing an excellent epidurogram with the epidural spread of the dye, after negative aspiration for blood and CSF and in the absence of paresthesias. Again after negative aspiration, a 2 ml mixture contai alfredo 10 mg of Decadron and 1 ml of preservative free Normal Saline solution was injected and a washout of epidurogram was seen. Needle was withdrawn intact, skin was cleansed, and bandages were applied. A copy of the needle placement picture was saved to the fluoroscopy machine. I then turned my attention into doing the trigger point injections on the left cervical paravertebral musculature and left shoulder area including the trapezius muscle, supraspinatus muscle and the cervical paravertebral musculature using 1 ml of ropivacaine 0.5% in each trigger point with a total of 6 and mils used. Patient tolerated procedure well. Patient was transferred to PACU in stable condition and will be seen in the office in a few weeks.
[2021-07-31 07:40] VITALS: RESP 20
--- NOTE | 2021-07-31 07:47 | FL ---
EXAMINATION TYPE: FL guided pain mgmt statistic DATE OF EXAM: 07/31/2021 CLINICAL HISTORY: Neck pain. TECHNIQUE: Fluoroscopy. COMPARISON: None. FINDINGS: Fluoroscopic guidance was provided during pain relief procedure performed by Dr. Johnson . A total of 24 seconds of fluoroscopic time was utilized during the procedure and 1 spot images are acquired. Single image acquired shows needle localization near cervicothoracic junction with contras t injection. IMPRESSION: As Above.
[2021-07-31 07:52] VITALS: BP 116/65; PULSE 67
== END 2021-07-31 08:06 | disposition home or self-care (01) ==
LOC: ORPAIN 06:15
PROVIDERS: ATTEND Anesthesiology
DX: M79.18 Myalgia, other site (principal); M54.12 Radiculopathy, cervical region
CPT/HCPCS: 20553; 62321; J2250; J1100; J3010; Q9966; J2795; 99152

== ENCOUNTER → 2021-08-25 | Outpatient (CLI) | payer MEDICARE, OTHER ==
[2021-08-25 14:11] VITALS: BP 127/73; PULSE 91; RESP 18; TEMP 97.9
--- NOTE | 2021-08-25 14:36 | P.PN ---
Subjective Progress Note Date: 08/25/21 Chuck is a 45-year-old male presented to clinic today for follow-up appointment after his third cervical epidural steroid injection on 07/31/2021. He reports that the pain and numbness in his left arm has completely resolved. However the pain in his neck region still persists. He was 100% pain-free for about 9 days after the intervention however gradually the pain has returned. Since his last visit he has seen Dr. Shaw and Dr. Shaw has referred him back here for medial branch block and possible RFA of the cervical heel branch nerves. Chuck reports that his pain increases with movement, activities and lifting. Pain is reduced with interventions and rest. He is taking oral medications including [place], Tylenol and Motrin, and baclofen. In the last 6 months he has had physical therapy which included home exercise program. The procedure was explained to the patient including possible complications and adverse effects. Patient had no other questions or concerns. Objective - Vital Signs Vital signs: Vital Signs Temp 97.9 F 08/25/21 14:05 Pulse 91 08/25/21 14:05 Resp 18 08/25/21 14:05 BP 127/73 08/25/21 14:05 Pulse Ox 98 08/25/21 14:05 - Exam Physical Examinations : -Constitutiona : Cooperative , not in acute distress . -HEENT : nech : supple , no Lymphadenopathy , normal thyroid size . : eyes : no ptosis , no icterus, no photophobia . - neurologic : Cranial nerve II to XII intact , no focal neurological deffecit . -psychatric : alert , oriented X 3 , appropriate affect , intact judgment and insight . -Lymphatic : no Lymphadenopathy . - musculoskeltal : Cervical Spine motor stregnth in the deltoid and biceps, normal right side , normal Left side motor stregnth biceps and the wrist extensors normal right side ,normal left side . motor stregnth in the triceps muscle . normal Right side , normal Left side deep tendon reflexes normal at the biceps , normal at Brachioradialis , normal at triceps. cervical facet loading test: Positive Bilaterally Spurling test= positive Right , positive left. Neck distraction test= positive Right , positive left. Landy sign= negative Assessment and Plan Assessment: Assessment and plan Assessment: Cervical spondylosis and facet arthropathy without myelopathy Cervical radiculopathy Plan: Patient could benefit from bilateral cervical medial branch block at C5 6. If benefit from this diagnostic test continuous confirmatory test up to and including rhizotomy - PQRS measures = - Patient's medications are documented in the chart. -Tobacco use is negative -Patient's has not received pneumococcal vaccine. -Advanced care planning discussed, patient not eligible. -Opiate contract not signed. -Pain positive and follow-up visit/procedure is scheduled. -Patient's blood pressure measured [ 127/73 ] , and documented in the record ,and patient will follow up with the primary care. -Patient was not identified as an unhealthy alcohol user Time with Patient: Less than 30
== END ==
LOC: PNWHC3 14:00
PROVIDERS: ATTEND Student in an Organized Health Care Education/Training Program
DX: M47.22 Other spondylosis with radiculopathy, cervical region (principal); Z87.891 Personal history of nicotine dependence
CPT/HCPCS: 99211

== ENCOUNTER → 2023-08-11 | Outpatient (CLI) | payer MEDICARE, OTHER ==
[2023-08-11 15:24] VITALS: BP 131/85; PULSE 76; TEMP 97.6; BMI 45.0
--- NOTE | 2023-08-11 15:30 | P.HPBAR ---
Bariatric H&P - History & Physicial H&P Date: 08/11/23 History & Physicial: Visit/CC: bariatric F/U Patient initial contact: Initial weight: 220.854 kg Initial weight in pounds: 486.90 Height: 6 ft Initial BMI: 66.0 Last weight: Current weight: 150.593 kg Current weight in pounds: 332.00 Current BMI: 45.0 [place] body weight (based on NIH guidelines): 80.739 kg Excess body weight loss: 50.1% The patient is a 47 year-old M who presents for Bariatric Assessment. He has gained 75 pounds in 7 years. He has severe reflux disease. He is atypical chest pain. He walks up in the night. He has maintained 70 pound weight loss lifetime. He is snoring occassionally. Recommend colonoscopy for screening. Preps described. Labs advised. Recommend on her endoscopy for severe gastroesophageal reflux disease and presence of sleeve gastrectomy. Patient is accompanied by family who also had sleeve conversion to gastric bypass due to reflux. Many questions asked by family member and addressed. Liquid prep similar to [place] tab alternative prescribed Past Medical History Past Medical History: GERD/Reflux, Hypertension, Musculoskeletal Disorder, Skin Disorder, Sleep Apnea/CPAP/BIPAP Additional Past Medical History / Comment(s): HTN resolved, migraines, uses CPAP, TROUBLE FALLING ASLEEP, hx fractured left elbow, neck & shoulder problems. 3 concussions in 2020. History of Any Multi-Drug Resistant Organisms: None Reported Past Surgical History: Bariatric Surgery, Orthopedic Surgery Additional Past Surgical History / Comment(s): Right ankle - screws and plates, Gastric Sleeve 02/04/2015. Past Anesthesia/Blood Transfusion Reactions: Previous Problems w/ Anesthesia, Motion Sickness Additional Past Anesthesia/Blood Transfusion Reaction / Comm: Headaches after waking up. Past Psychological History: ADD/ADHD, Anxiety, Depression Smoking Status: Former smoker Past Alcohol Use History: None Reported Additional Past Alcohol Use History / Comment(s): Quit smoking 5 yrs ago, smoked on & off for 15 yrs, 1ppd. Past Drug Use History: None Reported - Past Family History Mother Family Medical History: Diabetes Mellitus, Hyperlipidemia, Hypertension Additional Family Medical History / Comment(s): high cholesterol Surgical - Exam Vital Signs Temp Pulse BP 97.6 F 76 131/85 08/11/23 14:58 08/11/23 14:58 08/11/23 14:58 Bariatric Checklist Checklist: Plan: Checklist: EGD: 1. Hiatal hernia: 2. H. Pylori: HgbA1c: Vitamin D: Smoking: Former smoker Primary care physician referral: Gissel Lane Psychiatry clearance: Cardiology clearance: Sleep study: Diet journal: VTE risk score: VTE risk level: Rehab needs at discharge:
[2023-08-11 17:06] LABS: INR 0.9 (<1.2); Partial Thromboplastin Time 24.8 sec (22.0-30.0); Prothrombin Time 10.4 sec (10.0-12.5)
[2023-08-11 20:43] LABS: HCT 40.3 % (39.6-50.0); HGB 13.5 d/dL (13.0-17.0); MCH 29.3 pg (27.0-32.0); MCHC 33.5 d/dL (32.0-37.0); MCV 87.4 FL (80.0-97.0); Mean Platelet Volume 10.2 FL (9.5-12.2); NRBC Per 100 WBC 0 X 10*3/uL (0.00-0.01); Platelet Count 379 X 10*3/uL (140-440); RBC 4.61 X 10*6/uL (4.40-5.60); RDW 12.9 % (11.5-14.5); WBC 7.88 X 10*3/uL (4.50-10.00)
[2023-08-12 05:48] LABS: % Iron Saturation 26.93 (15.00-50.00); ALT 29 U/L (10-49); AST 18 U/L (14-35); Albumin 4.6 d/dL (3.8-4.9); Albumin/Globulin Ratio 1.84 Ratio (1.60-3.17); Alkaline Phosphatase 49 U/L (41-126); Blood Urea Nitrogen 19.6 mg/dL (9.0-27.0); Calcium 10.2 mg/dL (8.7-10.3); Carbon Dioxide 26.3 mmol/L (21.6-31.8); Chloride 104 mmol/L (96-109); Chol/HDL Ratio 4.39 Ratio; Ferritin 55.2 ng/mL (22.0-322.0); Globulin 2.5 d/dL (1.6-3.3); Glucose 94 mg/dL (70-110); Iron 94 UG/DL (65-175); LDL Cholesterol,Calculated 144.5 mg/dL (0.0-131.0); Magnesium 1.9 mg/dL (1.5-2.4); Phosphorus 3.7 mg/dL (2.4-5.1); Potassium 5.2 mmol/L (3.5-5.5); Sodium 141 mmol/L (135-145); Total Bilirubin 0.5 mg/dL (0.3-1.2); Total Iron Binding Capacity 349 UG/DL (228-460); Total Protein 7.1 d/dL (6.2-8.2); VLDL Calculation 16.08 mg/dL (5.00-40.00)
[2023-08-12 05:51] LABS: Prealbumin 28.4 mg/dL (18.0-42.0)
[2023-08-12 15:29] LABS: Zinc, Serum 84 ug/dL (60-130)
[2023-08-13 06:12] LABS: Vitamin A 60 ug/dL (38-106)
[2023-08-13 06:42] LABS: Vit B1(Thiamine) 71 ug/L (38-122)
[2023-08-19 08:02] LABS: Selenium 148 mcg/L (63-160)
== END ==
LOC: BARWHC3 14:23
PROVIDERS: ATTEND Surgery Plastic and Reconstructive Surgery
DX: E89.1 Postprocedural hypoinsulinemia (principal); D50.8 Other iron deficiency anemias; D50.9 Iron deficiency anemia, unspecified; K91.2 Postsurgical malabsorption, not elsewhere classified; E44.0 Moderate protein-calorie malnutrition; E44.1 Mild protein-calorie malnutrition; E45 Retarded development following protein-calorie malnutrition; E55.9 Vitamin D deficiency, unspecified; K74.1 Hepatic sclerosis; K50.90 Crohn's disease, unspecified, without complications; Z87.891 Personal history of nicotine dependence
CPT/HCPCS: 84255; 84134; 84425; 80061; 80053; 82607; 82728; 82525; 82746; 83540; 83550; 83735; 84100; 84443; 84590; 84630; 85027; 85610; 85730; 82306; 83970; G0463; 99211

== ENCOUNTER → 2023-10-12 | Outpatient (CLI) | payer MEDICARE, OTHER ==
--- NOTE | 2023-10-13 08:05 | MR ---
EXAMINATION TYPE: MR cervical spine wo con DATE OF EXAM: 10/12/2023 9:39 PM CLINICAL INDICATION:Male, 48 years old with history of M54.2,M50.322, Neck pain, left upper side of b elvia pain COMPARISON: None. TECHNIQUE: Multi planar, multi sequence imaging was performed utilizing: T1-weighted, T2-weighted, an d turbo inversion recovery imaging of the cervical spine. IV Contrast: (none if empty) FINDINGS: Alignment: The cervical vertebral bodies have preserved heights. Alignment is within normal limits gi dottie patient positioning. Bones: Scattered Modic endplate changes with osteophytes and disc space narrowing. Multilevel degener ative disc disease is noted and most pronounced at the C5-C7 vertebral levels. Cord: The spinal cord is unremarkable with regards to their signal intensity and morphology. Discs: Multilevel disc desiccation is present. C2-C3: No significant disc pathology. The spinal canal is patent. No neural foraminal stenosis. C3-C4: No significant disc pathology. The spinal canal is patent. No neural foraminal stenosis. C4-C5: No significant disc pathology. The spinal canal is patent. No neural foraminal stenosis. C5-C6: A disc osteophyte complex is present with mild to moderate spinal canal stenosis. Bilateral f acet and uncovertebral joint arthropathy are present with moderate to severe left and mild to moderat e right neural foraminal stenosis. C6-C7: No significant disc pathology. The spinal canal is patent. Bilateral facet and uncovertebral joint arthropathy are present with mild bilateral neural foraminal stenosis. C7-T1: No significant disc pathology. The spinal canal is patent. No neural foraminal stenosis. Other: None. IMPRESSION: 1. No evidence for disc herniation or significant spinal canal stenosis. 2. Mild disc degeneration with associated osteoarthritic changes with neural foraminal stenosis worse at C5-C6 on the left.
== END | disposition home or self-care (01) ==
LOC: RADMRIMAIN 14:46
PROVIDERS: ATTEND Orthopaedic Surgery Orthopaedic Surgery of the Spine
DX: M50.322 Other cervical disc degeneration at C5-C6 level (principal); M79.12 Myalgia of auxiliary muscles, head and neck; M47.812 Spondylosis without myelopathy or radiculopathy, cervical region; E66.3 Overweight; M99.71 Connective tissue and disc stenosis of intervertebral foramina of cervical region
CPT/HCPCS: 72141

== ENCOUNTER → 2024-01-19 | Outpatient (CLI) | payer MEDICARE, OTHER ==
--- NOTE | 2024-01-19 18:01 | P.BASOAP ---
Subjective Progress Note Date: 01/19/24 Has aspiration pneumonia with sleeve. Take motrin. He has neck issues. Has epidural to the neck. Got down to sleeve. He was running and had injuries that set him back and now with weight gain. Recommend hiatal hernia repair. Assessment/Plan Plan: Date: Initial Weight: 220.854 kg Initial BMI: Current Weight: Current BMI: Type of Surgery: Total Volume in Band: Previous Volume: Volume Removed: Volume Added: Band Size:
[2024-01-20 13:02] VITALS: BP 155/93; PULSE 79; TEMP 98.4; BMI 47.5
== END ==
LOC: BARWHC3 14:59
PROVIDERS: ATTEND Surgery Plastic and Reconstructive Surgery
DX: E66.01 Morbid (severe) obesity due to excess calories (principal); Z53.9 Procedure and treatment not carried out, unspecified reason
CPT/HCPCS: 99211

== ENCOUNTER → 2024-01-25 | Outpatient (CLI) | payer MEDICARE, OTHER | END | disposition home or self-care (01) | LOC: LABPAT 15:23 | PROVIDERS: ATTEND Surgery Plastic and Reconstructive Surgery | DX: Z01.818 Encounter for other preprocedural examination (principal) | CPT/HCPCS: 93005 ==